=== PATIENT | female | born 1960 | race Caucasian/White ===

== ENCOUNTER 2017-05-02 13:05 | Emergency (ER) | payer SELFPAY ==
[~2017-05-02] VITALS: Ht 180.3 cm; Wt 84.0 kg
[~2017-05-02 13:05] MED LIST: CLON1 PO; PROM6.257 PO
[2017-05-02 13:07] VITALS: BP 194/100; PULSE 83; RESP 16; TEMP 97.9; O2SAT 98
[2017-05-02 13:54] LABS: BASOPHIL # 0.1 TH/MM3 (0-0.2); BASOPHIL % 1.2 % (0.0-2.0); EOSINOPHIL # 0.1 TH/MM3 (0-0.4); EOSINOPHIL % 0.8 % (0.0-4.0); HEMATOCRIT 39.4 % (35.0-46.0); HEMO FLAGS DIFF FINAL; MEAN CELL VOLUME 88.5 FL (80.0-100.0); MEAN CORPUSCULAR HEMOGLOBIN 30.5 PG (27.0-34.0); MEAN CORPUSCULAR HGB CONC 34.4 % (32.0-36.0); MONO % 4.2 % (0.0-8.0); NEUT % 62.8 % (16.0-70.0); PLATELET COUNT 297 TH/MM3 (150-450); RED BLOOD COUNT 4.45 MIL/MM3 (4.00-5.30); RED CELL DISTRIBUTION WIDTH 14.3 % (11.6-17.2); WHITE BLOOD COUNT 9.6 TH/MM3 (4.0-11.0)
--- NOTE | 2017-05-02 14:06 | RADRPT ---
EXAM DATE/TIME: 05/02/2017 13:42 [place] COMPARISON: No previous studies available for comparison. INDICATIONS : Mid-chest pain and tightness. MEDICAL HISTORY : Hypertension. SURGICAL HISTORY : None. ENCOUNTER: Initial ACUITY: 1 day PAIN SCORE: 7/10 LOCATION: Bilateral chest FINDINGS: PA and lateral views of the chest demonstrate the lungs to be symmetrically aerated without evidence of mass, infiltrate or effusion. The cardiomediastinal contours are unremarkable. Osseous structure s are intact. CONCLUSION: No acute disease. Marcos Knowles Jr., MD on May 02, 2017 at 13:57 Board Certified Radiologist. This report was verified electronically.
[2017-05-02 14:12] LABS: ANION GAP 6 MEQ/L (5-15); BICARBONATE 28.6 MEQ/L (21.0-32.0); BLOOD UREA NITROGEN 13 MG/DL (7-18); CHLORIDE 104 MEQ/L (98-107); GLOMERULAR FILTRATION RATE 55 ML/MIN (>89); POTASSIUM 3.4 MEQ/L (3.5-5.1); SODIUM (NA) 139 MEQ/L (136-145)
[2017-05-02 14:19] LABS: CREATINE KINASE 63 U/L (26-192)
--- NOTE | 2017-05-03 11:27 | EKG ---
Date Performed: 05/02/2017 Time Performed: 13:19:22 PTAGE: 57 years EKG: Sinus rhythm NORMAL ECG Compared to prior tracing no significant change PREVIOUS TRACING : 05/03/2015 00.15 DOCTOR: Jorge Marley Interpretating Date/Time 05/03/2017 11:26:08
== END 2017-05-02 16:53 | disposition left against medical advice (07) ==
LOC: NED 13:05
DX: I20.9 Angina pectoris, unspecified (principal); R06.02 Shortness of breath
CPT/HCPCS: 71020; 80048; 82550; 84484; 85025; 93005; 99281

== ENCOUNTER 2018-06-02 15:11 | Observation (INO) ==
[2018-06-02] MEDS ORDERED: Morphine Inj 4 MG/ML Vial IV.PUSH ONE (15:23)
--- NOTE | 2018-06-02 15:27 | ED ---
HPI General Chief Complaint: Chest Pain Stated Complaint: chest pain Time Seen by Provider: 06/02/18 15:19 Source: patient Mode of arrival: ambulatory Limitations: no limitations History of Present Illness HPI narrative: According to patient she does not have a primary care physician currently No known drug allergy Past medical history significant for hypertension, hypercholesterolemia, denies any cardiac or diabetic history Patient comes in complaining of epigastric/substernal chest pressure, has been going on since 9 AM, worsening over the last 45 minutes, associated with nausea but without any diaphoresis vomiting diarrhea MD complaint: Reports chest pain STEMI Alert: No Onset (ago): hour(s) (6) Duration: constant and progressively worsening Onset: during rest Pain location: Reports substernal Severity: severe Severity scale (1-10): 9 Quality: Reports tightness and heaviness Pain radiation: Reports jaw/teeth Relieving factors: nothing Exacerbating factors: nothing Treatments prior to arrival chest pain: Reports none Related Data Allergies Allergy/AdvReac Type Severity Reaction Status Date / Time No Known Allergies Allergy Verified 06/02/18 15:15 Review of Systems ROS: all other systems reviewed are negative [facility] Medical History Medical History Hypertension (Acute) Irregular heart beat (Acute) Surgical History Surgical History History of nasal surgery (Acute) Social History Social History Substance History: No History of Abuse Smoking Status: Never smoker How Often Do You Have a Drink Containing Alcohol: Never Recent Travel in [facility] within the Last 8 Weeks: No Recent Out of Country Travel within the Last 8 Weeks: No Immunization History Tetanus Immunization: Unsure Exam Narrative Exam Narrative: GENERAL: female in moderate distress secondary to chest pain SKIN: Focused skin assessment warm/dry. HEAD: Atraumatic. Normocephalic. EYES: Pupils equal and round. No scleral icterus. No injection or drainage. ENT: No nasal bleeding or discharge. Mucous membranes pink and moist. NECK: Trachea midline. No JVD. CARDIOVASCULAR: Regular rate and rhythm. No murmur appreciated. RESPIRATORY: No accessory muscle use. Clear to auscultation. Breath sounds equal bilaterally. GASTROINTESTINAL: Abdomen soft, non-tender, nondistended. Hepatic and splenic margins not palpable. MUSCULOSKELETAL: No obvious deformities. No clubbing. No cyanosis. No edema. NEUROLOGICAL: Awake and alert. No obvious cranial nerve deficits. Motor grossly within normal limits. Normal speech. PSYCHIATRIC: Appropriate mood and affect; insight and judgment normal. Course Initial Documented Vital Signs Temperature 97.6 F 06/02/18 15:13 Pulse Rate 82 06/02/18 15:13 Respiratory Rate 24 06/02/18 15:13 Blood Pressure 191/102 H 06/02/18 15:13 Pulse Oximetry 100 06/02/18 15:13 Last Documented Vital Signs Temperature 97.6 F 06/02/18 15:13 Pulse Rate 79 06/02/18 15:34 Respiratory Rate 19 06/02/18 15:34 Blood Pressure 155/79 H 06/02/18 15:34 Pulse Oximetry 98 06/02/18 15:34 Critical Care Time Critical Care Time: Yes Total Critical Care Time: 30 Attestation: Aggregate critical care time was 30 minutes. Time to perform other separately billable procedures was not included in the critical care time. My time did not include minutes spent treating any other patients simultaneously or on activities that did not directly contribute to the patient's treatment. The services I provided to this patient were to treat and/or prevent clinically significant deterioration I provided critical care services requiring my management, as noted below: Chart data review, documentation time, medication orders and management, vital sign assessments/reviewing monitor data, ordering and reviewing lab tests, ordering and interpreting/reviewing x-rays and diagnostic studies, care of the patient and discussion of the patient with the admitting physicians. Medical Decision Making MDM Narrative Medical decision making narrative: Coagulation profile is within normal limits CBC does not show any leukocytosis , or left shift, normal platelet count, no anemia First set of cardiac enzymes negative Normal pancreatic functions, first set of cardiac enzymes negative, electrolytes are all within normal limits, mildly elevated creatinine 1.19 with decreased GFR of 46 As of [address] chest rule out PE Medical Screen Exam Complete: Yes Emergency Medical Condition: Yes Medical Records Medical records reviewed: Yes I reviewed the patient's medical records. Lab Data Result diagrams: 06/02/18 15:26 06/02/18 15:26 Lab Results 06/02/18 06/02/18 06/02/18 Range/Units 15:26 15:26 15:26 WBC 11.0 (4.0-11.0) th/mm3 RBC 4.85 (4.00-5.30) mil/mm3 Hgb 14.8 (11.6-15.3) gm/dL Hct 43.6 (35.0-46.0) % MCV 89.9 (80.0-100.0) fL MCH 30.4 (27.0-34.0) pg MCHC 33.9 (32.0-36.0) % RDW 14.4 (11.6-17.2) % Plt Count 321 (150-450) th/mm3 MPV 7.6 (7.0-11.0) fL Neut % (Auto) 52.5 (16.0-70.0) % Lymph % (Auto) 37.4 (9.0-44.0) % Walker % (Auto) 7.2 (0.0-8.0) % Eos % (Auto) 1.7 (0.0-4.0) % Baso % (Auto) 1.2 (0.0-2.0) % Neut # (Auto) 5.8 (1.8-7.7) th/mm3 Lymph # (Auto) 4.1 (1.0-4.8) th/mm3 Walker # (Auto) 0.8 (0.0-0.9) th/mm3 Eos # (Auto) 0.2 (0.0-0.4) th/mm3 Baso # (Auto) 0.1 (0.0-0.2) th/mm3 WBC Differential . Differential Comment Auto diff final PT 10.3 (9.8-11.6) sec INR 1.0 Ratio APTT 28.0 (23.4-31.7) sec Sodium 139 (136-145) meq/L Potassium 3.8 (3.5-5.1) meq/L Chloride 102 (98-107) meq/L Carbon Dioxide 28.4 (21.0-32.0) meq/L Anion Gap 9 (5-15) meq/L BUN 11 (7-18) mg/dL Creatinine 1.19 H (0.50-1.00) mg/dL Estimated GFR 46 L (>89) mL/min Random Glucose 97 (74-106) mg/dL Calcium 9.3 (8.5-10.1) mg/dL Total Bilirubin 0.5 (0.2-1.0) mg/dL AST 56 H (15-37) U/L ALT 46 (10-53) U/L Alkaline Phosphatase 132 H (45-117) U/L Total Creatine Kinase 85 (26-192) U/L Troponin I Less than 0.02 L (0.02-0.05) ng/mL Total Protein 8.8 H (6.4-8.2) g/dL Albumin 3.9 (3.4-5.0) g/dL Lipase 151 (73-393) U/L Imaging Data Radiologist's impression: Chest X-Ray 06/02/18 15:23 CONCLUSION: Negative examination. ECG Data EKG Prior to Arrival: No Attestation: I personally reviewed and interpreted this ECG as follows: Prior ECG tracings: not available for review Interpretation: Normal sinus rhythm, normal intervals 84 bpm, baseline motion artifact noted, however no major evidence of any acute ST elevation WA pattern noted Discharge Plan Discharge Disposition Patient Disposition: 30 Still Patient Discharge Condition Condition: Fair Discharge Details Diagnosis: Chest pain, rule out acute myocardial infarction Physicians Team ED Provider: Bruno Munoz Discharge Instructions Patient Printed Instructions: Chest Pain (ED) Discharge Interventions Interventions: Vital Signs Last Done: 06/02/18 15:15 Status ED Status: Pending Admission
[2018-06-02] MEDS: Metoprolol Inj 5 MG/5 ML Vial IV.PUSH SCH ×2 (15:29→17:01)
[2018-06-02 15:38] LABS: Baso # (Auto) 0.1 th/mm3 (0.0-0.2); Baso % (Auto) 1.2 % (0.0-2.0); Eos # (Auto) 0.2 th/mm3 (0.0-0.4); Eos % (Auto) 1.7 % (0.0-4.0); Hematocrit 43.6 % (35.0-46.0); Hemoglobin 14.8 gm/dL (11.6-15.3); Lymph # (Auto) 4.1 th/mm3 (1.0-4.8); Lymph % (Auto) 37.4 % (9.0-44.0); Mean Corpuscular HGB Conc 33.9 % (32.0-36.0); Mean Corpuscular Hemoglobin 30.4 pg (27.0-34.0); Mean Corpuscular Volume 89.9 fL (80.0-100.0); Mean Platelet Volume 7.6 fL (7.0-11.0); Mono # (Auto) 0.8 th/mm3 (0.0-0.9); Mono % (Auto) 7.2 % (0.0-8.0); Neut # (Auto) 5.8 th/mm3 (1.8-7.7); Neut % (Auto) 52.5 % (16.0-70.0); Platelet Count 321 th/mm3 (150-450); Red Blood Count 4.85 mil/mm3 (4.00-5.30); Red Cell Distribution Width 14.4 % (11.6-17.2)
--- NOTE | 2018-06-02 15:49 | XR ---
EXAM DATE: 06/02/2018 3:44 PM EST AGE/SEX: 58 years / Female INDICATIONS: Bilateral chest pain. CLINICAL DATA: This is the patient's initial encounter. Patient reports that signs and symptoms have been present for 1 day and indicates a pain score of 4/10. MEDICAL/SURGICAL HISTORY: Hypertension. None. COMPARISON: [facility] [place], CHEST PA & LAT, 05/02/2017. . FINDINGS: A single AP view of the chest demonstrates the lungs to be symmetrically aerated without evidence of mass, infiltrate or effusion. The cardiomediastinal contours are unremarkable. Osseous structures a re intact. CONCLUSION: Negative examination. Electronically signed by: Mio Randolph MD 06/02/2018 3:48 PM EST
[2018-06-02 15:55] LABS: Alanine Aminotransferase 46 U/L (10-53); Albumin 3.9 g/dL (3.4-5.0); Anion Gap 9 meq/L (5-15); Aspartate Aminotransferase 56 U/L (15-37); Blood Urea Nitrogen 11 mg/dL (7-18); Calcium 9.3 mg/dL (8.5-10.1); Carbon Dioxide 28.4 meq/L (21.0-32.0); Chloride 102 meq/L (98-107); Glomerular Filtration Rate 46 mL/min (>89); Glucose,Random 97 mg/dL (74-106); Lipase 151 U/L (73-393); Potassium 3.8 meq/L (3.5-5.1); Sodium 139 meq/L (136-145)
[2018-06-02 15:58] LABS: Prothrombin Time 10.3 sec (9.8-11.6)
[2018-06-02 15:59] LABS: Alkaline Phosphatase 132 U/L (45-117); Creatine Kinase 85 U/L (26-192); Total Protein 8.8 g/dL (6.4-8.2)
[2018-06-02] MEDS ORDERED: Acetaminophen 500 MG Tablet PO PRN (16:43)
--- NOTE | 2018-06-02 17:10 | P.HPCA ---
History of Present Illness Primary Care Physician: No Primary Care Physician Chief Complaint: Chest pain History of Present Illness: 58-year-old female with known hypertension and hyperlipidemia currently not on medication presents emergency room for further evaluation of nonexertional chest pain. Onset 9 AM. Location substernal with radiation to left jaw. Characterized as a dull pressure. Associated symptoms included mild shortness of breath and diaphoresis. No nausea or vomiting. No precipitating or relieving factors. Reports chest pressure become intense, therefore came to ER for further evaluation. Intense chest pain lasted 1 hour. Discomfort never fully resolved. Currently reports pressure as "mild." Endorses similar pain intermittently in the last few months. Reports with exertion becoming dyspneic, followed by substernal chest pressure with associated diaphoreses. Resolves with rest. Does not follow with a PCP. Known hypertension and hyperlipidemia. No known coronary artery disease or diabetes. No recent illness, fever, injury , or increased situational stress. Past cardiac testing None Social history Known hypertension and hyperlipidemia, unfortunately, medication. No known diabetes or coronary artery disease. Lifelong non-smoker. Occasional social drinker. No recreational drug use. . Family lives locally. [place] twins live with her. Family history Noncontributory for early onset vascular disease - Diagnosis (1) Chest pain, rule out acute myocardial infarction (2) Hypertension Review of Systems All other systems reviewed negative except as stated in [facility] - History History Provided By: Patient - Medical History Medical History: Medical History (Last Updated 06/02/18 @ 17:18 by DUNIA Soares) Hyperlipidemia Hypertension Irregular heart beat - Surgical History Surgical History: Surgical History (Last Reviewed 06/02/18 @ 17:18 by DUNIA Soares) History of nasal surgery - Social History I have reviewed the patient's Social History: Yes - Tobacco History Second Hand Smoke Exposure: No Tobacco Use In Past 30 Days: No Smoking Status: Never smoker - Alcohol History How Often Do You Have a Drink Containing Alcohol: Never - Substance Use History Substance History: No History of Abuse - Travel History History of Recent Travel: No Recent Travel in the [place] Within the Last 8 Weeks: No Recent Travel Out of the Country Within the Last 8 Weeks: No - Immunization History Tetanus Immunization: Unsure Medications and Allergies Active Medications: Active Medications Acetaminophen (Tylenol) 500 mg PO Q4H PRN PRN Reason: HEADACHE Nitroglycerin (Nitrostat Sl) 0.4 mg SL Q5M PRN PRN Reason: CHEST PAIN Ondansetron HCl (Zofran Inj) 4 mg IV.PUSH Q6H PRN PRN Reason: NAUSEA Sodium Chloride (Ns Flush) 2 ml IV.FLUSH UNSCH PRN PRN Reason: FLUSH AFTER USING IV ACCESS Last Admin: 06/02/18 15:30 Dose: 2 ml Sodium Chloride (Ns Flush) 2 ml IV.FLUSH BID JARET Allergies Allergy/AdvReac Type Severity Reaction Status Date / Time No Known Allergies Allergy Verified 06/02/18 15:15 Exam Vital signs: Vital Signs 06/02/18 15:13 06/02/18 15:15 06/02/18 15:34 Temperature 97.6 F Pulse Rate 82 84 79 Respiratory Rate 24 22 19 Blood Pressure 191/102 H 196/104 H 155/79 H Pulse Oximetry 100 97 98 06/02/18 16:00 06/02/18 17:04 Temperature Pulse Rate 73 Respiratory Rate 18 Blood Pressure 142/78 H Pulse Oximetry 95 95 Intake & Output 06/01/18 06/02/18 06/02/18 18:59 06:59 18:59 Weight 99.79 kg Narrative: GENERAL: Alert WN, WD, NAD, pleasant, overweight, female HEAD: NC, AT EYES: Sclera clear, conjunctiva without injection ENT: Mucous membranes pink and moist NECK: Supple, no masses, trachea midline CV: RRR, without murmur, rub, gallop, no JVD, S1-S2 no S3-S4. No carotid bruits. Chest wall tender with palpation, not reproducible in characteristic presenting chest pain RESP: Clear lungs throughout bilateral, no crackles, wheeze, rhonchi, symmetrical chest rise, nonlabored, able to speak in full sentences ABD: Soft, NT, ND, no masses, positive bowel tones, obese EXT: Pulses +2x4, no dependent edema MS: Normal tone x4 extremities, nontender, no obvious deformities, full range of motion NEURO: CN II through CN XII grossly intact, motor strength 5/5 PSYCH: A+O x3, pleasant affect, appropriate speech, mood, insight and judgment SKIN: Normal turgor, normal texture, no lesions, no rashes, brisk cap refill, even hair distribution Results 06/02/18 15:26 06/02/18 15:26 Cardiac Enzymes 06/02/18 06/02/18 Range/Units 15:26 15:26 AST 56 H (15-37) U/L Troponin I Less than 0.02 L (0.02-0.05) ng/mL B-Natriuretic Peptide 49 (0-100) pg/mL Coagulation 06/02/18 06/02/18 Range/Units 15:26 15:26 PT 10.3 (9.8-11.6) sec APTT 28.0 (23.4-31.7) sec B-Natriuretic Peptide 49 (0-100) pg/mL CBC 06/02/18 Range/Units 15:26 WBC 11.0 (4.0-11.0) th/mm3 RBC 4.85 (4.00-5.30) mil/mm3 Hgb 14.8 (11.6-15.3) gm/dL Hct 43.6 (35.0-46.0) % Plt Count 321 (150-450) th/mm3 Neut # (Auto) 5.8 (1.8-7.7) th/mm3 Lymph # (Auto) 4.1 (1.0-4.8) th/mm3 Ritchie # (Auto) 0.8 (0.0-0.9) th/mm3 Eos # (Auto) 0.2 (0.0-0.4) th/mm3 Baso # (Auto) 0.1 (0.0-0.2) th/mm3 Comprehensive Metabolic Panel 06/02/18 Range/Units 15:26 Sodium 139 (136-145) meq/L Potassium 3.8 (3.5-5.1) meq/L Chloride 102 (98-107) meq/L Carbon Dioxide 28.4 (21.0-32.0) meq/L BUN 11 (7-18) mg/dL Creatinine 1.19 H (0.50-1.00) mg/dL Calcium 9.3 (8.5-10.1) mg/dL AST 56 H (15-37) U/L ALT 46 (10-53) U/L Alkaline Phosphatase 132 H (45-117) U/L Total Protein 8.8 H (6.4-8.2) g/dL Albumin 3.9 (3.4-5.0) g/dL Intake and Output 11/18/18 11/18/18 11/18/18 06:59 14:59 22:59 Other: Weight 99.79 kg Patient Weight 06/03/18 06:59 Weight 99.79 kg - Imaging and Cardiology Imaging: Impressions Chest X-Ray 06/02/18 15:23 CONCLUSION: Negative examination. EKG interpretations - EKG EKG results cardiology: sinus rhythm, normal axis, normal QRS, normal ST/T Caprini VTE Risk Assessment Caprini VTE Risk Assessment: No/Low Risk (score <= 1) Caprini Risk Assessment Model: Point Value = 1 Point Value = 2 Point Value = 3 Point Value = 5 Age 41-60 Minor surgery BMI > 25 kg/m2 Swollen legs Varicose veins or History of unexplained or recurrent spontaneous Oral contraceptives or hormone replacement Sepsis (< 1 month) Serious lung disease, including pneumonia (< 1 month) Abnormal pulmonary function Acute myocardial infarction Congestive heart failure (< 1 month) History of inflammatory bowel disease Medical patient at bed rest Age 61-74 Arthroscopic surgery Major open surgery (> 45 min) Laparoscopic surgery (> 45 min) Malignancy Confined to bed (> 72 hours) Immobilizing plaster cast Central venous access Age >= 75 History of VTE Family history of VTE Factor V Leiden Prothrombin [id number] Lupus anticoagulant Anticardiolipin antibodies Elevated serum homocysteine Heparin-induced thrombocytopenia Other congenital or acquired thrombophilia Stroke (< 1 month) Elective arthroplasty Hip, pelvis, or leg fracture Acute spinal cord injury (< 1 month) Prophylaxis Regimen: Total Risk Factor Score Risk Level Prophylaxis Regimen 0-1 Low Early ambulation 2 Moderate Order ONE of the following: *Sequential Compression Device (SCD) *Heparin 5000 units SQ BID 3-4 Higher Order ONE of the following medications: *Heparin 5000 units SQ TID *Enoxaparin/Lovenox 40 mg SQ daily (WT < 150 kg, CrCl > 30 mL/min) *Enoxaparin/Lovenox 30 mg SQ daily (WT < 150 kg, CrCl > 10-29 mL/min) *Enoxaparin/Lovenox 30 mg SQ BID (WT < 150 kg, CrCl > 30 mL/min) AND/OR *Sequential Compression Device (SCD) 5 or more Highest Order ONE of the following medications: *Heparin 5000 units SQ TID (Preferred with Epidurals) *Enoxaparin/Lovenox 40 mg SQ daily (WT < 150 kg, CrCl > 30 mL/min) *Enoxaparin/Lovenox 30 mg SQ daily (WT < 150 kg, CrCl > 10-29 mL/min) *Enoxaparin/Lovenox 30 mg SQ BID (WT < 150 kg, CrCl > 30 mL/min) AND *Sequential Compression Device (SCD) Assessment and Plan - Assessment (1) Chest pain, rule out acute myocardial infarction Code(s): R07.9 - Chest pain, unspecified Status: Acute Plan: Admitted chest pain center. Continue to rule out ACS with 3 sets of EKGs and cardiac enzymes. Seen and evaluated by Dr. Everett Ordonez. Presenting symptoms concerning for angina. Monitor on telemetry overnight. Begin nitroglycerin 0.5 inch every 6 hours and metoprolol titrate 12.5 mg twice daily. If ACS ruled out overnight, plan to proceed with Lexiscan in a.m. Patient verbalized understanding and agreeable to plan of care. (2) Hypertension Code(s): I10 - Essential (primary) hypertension Status: Acute Plan: Continue to monitor. Strongly encouraged establishing with a primary care provider. (2) Hypertension Qualifiers: Hypertension type: unspecified Qualified Code(s): I10 - Essential (primary) hypertension
--- NOTE | 2018-06-02 17:41 | CT ---
EXAM DATE: 06/02/2018 5:33 PM EST AGE/SEX: 58 years / Female INDICATIONS: Chest pain and shortness of breath; rule out pulmonary embolus. CLINICAL DATA: This is the patient's initial encounter. Patient reports that signs and symptoms have been present for 1 day and indicates a pain score of 6/10. MEDICAL/SURGICAL HISTORY: Hypertension. . nasal surgery RADIATION DOSE: 23.15 CTDI (mGy) COMPARISON: No prior exams available for comparison. TECHNIQUE: Volumetric scanning was performed using a multi-row detector CT scanner during bolus infu rashi of 70 ml Omnipaque 350 (iohexol) nonionic water-soluble contrast as a single exam dose. The jacki a was post processed with a variety of visualization algorithms including full volume maximum intensi ty projection and sliding thin slab reformation. Using automated exposure control and adjustment of t he mA and/or kV according to patient size, radiation dose was kept as low as reasonably achievable to obtain optimal diagnostic quality images. DICOM format image data is available electronically for r eview and comparison. FINDINGS: Pulmonary Arteries: No filling defects are seen in the pulmonary arteries out to the subsegmental ve ssels. The left and right pulmonary arteries are normal in diameter. Lung: Minimal scattered atelectatic changes are noted. No pneumonia or pulmonary edema. No pulmonary nodule or mass. Effusion: None. Mediastinum: No evidence of mediastinal or hilar adenopathy. There is mild aneurysmal dilatation of the ascending thoracic aorta which measures 4.5 cm in greatest dimension. The heart is mildly promine nt. Other: The axilla is unremarkable. There is a 2.1 cm low-density lesion within the left hepatic lobe which is indeterminate. Mild hepatomegaly is noted. CONCLUSION: 1. No evidence of pulmonary embolism. 2. Minimal scattered atelectatic changes bilaterally. 3. Mild aneurysmal dilatation of the ascending thoracic aorta which measures 4.5 cm in greatest dime nsion. 4. Cardiomegaly. 5. 2.1 cm low-density lesion within the left hepatic lobe which is indeterminate. 6. Mild hepatomegaly. Electronically signed by: Mio Randolph MD 06/02/2018 5:39 PM EST
[2018-06-02 18:38] LABS: Creatine Kinase 81 U/L (26-192)
[2018-06-02] MEDS: Metoprolol Tartrate 25 MG Tablet PO SCH (20:00)
[2018-06-02 21:42] LABS: Creatine Kinase 59 U/L (26-192)
[2018-06-02 22:53] LABS: Amorphous Sediment,Urine Moderate /hpf; Bacteria,Urine Rare /hpf; Bilirubin,Urine Negative (Negative); Clarity,Urine Cloudy (Clear); Color,Urine Yellow (Yellw/Straw); Glucose,Urine (UA) Negative (Negative); Leukocyte Esterase,Urine Negative (Negative); Nitrite,Urine Negative (Negative); Specific Gravity,Urine 1.058 (1.002-1.035); Squamous Epithelial Cell,Urine 1 /hpf (0-5)
[2018-06-02 22:55] LABS: Amphetamine Screen,Urine Neg (Neg); Barbiturate Screen,Urine Neg (Neg); Cannabinoid Screen,Urine Neg (Neg); Cocaine Screen,Urine Neg (Neg)
[2018-06-02 22:56] LABS: Opiate Screen,Urine Pos (Neg)
[2018-06-03 04:09] VITALS: TEMP 97.5
[2018-06-03 06:54] LABS: Chol/HDL Ratio 4.7 Ratio; HDL Cholesterol 37.8 mg/dL (40.0-60.0)
--- NOTE | 2018-06-03 08:01 | ECG ---
Date Performed: 06/02/2018 Time Performed: 15:21:56 PTAGE: 58 years EKG: Sinus rhythm NORMAL ECG Since PREVIOUS TRACING , no significant change noted PREVIOUS TRACIN05/02/2017 13.19 DOCTOR: Tomasa Watkins Interpretating Date/Time 06/03/2018 08:00:54
--- NOTE | 2018-06-03 08:01 | ECG ---
Date Performed: 06/02/2018 Time Performed: 18:14:33 PTAGE: 58 years EKG: Sinus rhythm NORMAL ECG Since PREVIOUS TRACING , no significant change noted PREVIOUS TRACIN06/02/2018 15.21 DOCTOR: Tomasa Watkins Interpretating Date/Time 06/03/2018 08:01:20
[2018-06-03 08:02] VITALS: BP 152/95; RESP 16
--- NOTE | 2018-06-03 08:02 | ECG ---
Date Performed: 06/02/2018 Time Performed: 21:33:55 PTAGE: 58 years EKG: Sinus rhythm NORMAL ECG Since PREVIOUS TRACING , no significant change noted DOCTOR: Tomasa Watkins Interpretating Date/Time 06/03/2018 08:01:33
[2018-06-03] MEDS: Metoprolol Tartrate 25 MG Tablet PO SCH (08:18)
[2018-06-03 08:34] VITALS: O2SAT 98
[2018-06-03] MEDS ORDERED: Regadenoson Inj 0.4 MG/5 ML Syringe IV.PUSH ONE (09:06)
--- NOTE | 2018-06-03 10:18 | NM ---
EXAM DATE: 06/03/2018 10:08 AM EST AGE/SEX: 58 years / Female INDICATIONS:Angina. . Substernal chest pain. CLINICAL DATA: This is the patient's initial encounter. Patient reports that signs and symptoms have been present for 1 day and indicates a pain score of 1/10. MEDICAL/SURGICAL HISTORY: Hypercholesterolemia. Hypertension. None. COMPARISON: No prior exams available for comparison. DOSE: 8.1 mCi Tc 99m Myoview at rest 26.9 mCi [id number] at stress 0.4 mg Lexiscan STRESS SYMPTOMS: Dyspnea and chest pain. EJECTION FRACTION: 68 % TECHNIQUE: The patient underwent pharmacologic stress with infusion of prescribed dose. Continuous ECG tracing was monitored during stress. Gated SPECT imaging was performed after stress and conventi onal SPECT imaging was performed at rest. The examination was performed on a SPECT/CT scanner, both attenuation and non-corrected datasets were reviewed. FINDINGS: Distribution: The maximum perfused segment at stress is in the inferior wall wall. Perfusion Study: The pattern of perfusion at stress is within normal limits. Gated Study: There are intact wall motion and wall thickening without hypokinetic or dyskinetic segm ents. The ejection fraction is calculated at 68%. RISK CATEGORY: Low (<1% Annual Motality Rate) CONCLUSION: 1. No significant fixed or reversible perfusion abnormalities noted. 2. Normal wall motion and ejection fraction. Electronically signed by: Aldo Dewey MD 06/03/2018 10:17 AM EST
[2018-06-03 11:37] VITALS: PULSE 64
--- NOTE | 2018-06-03 16:55 | TR ---
Date Performed: 06/03/2018 Time Performed: 09:16:36 DOCTOR: Tomasa Watkins DRUG LIST: CLINICAL HISTORY: CHEST PAIN REASON FOR TEST: CHEST PAIN REASON FOR ENDING: OBSERVATION: CONCLUSION: Lexiscan stress test was performed under standard four minute protocol. Radionuclid e was injected one minute prior to ending the test. No electrocardiographic abormalities were present to suggest ischemia. Nuclear imaging and interpretation are pending. COMMENTS: Lexiscan stress test was performed under standard four minute protocol. Radionuclide was injected one minute prior to ending the test. No electrocardiographic abormalities were present t o suggest ischemia. Nuclear imaging and interpretation are pending.
== END 2018-06-03 11:59 | disposition home or self-care (01) ==
LOC: NEDA 15:11 → NEPC 15:11 → NEDA 17:46 → NEPHCDU 17:51
DX: K76.9 Liver disease, unspecified; E78.5 Hyperlipidemia, unspecified; I11.9 Hypertensive heart disease without heart failure; R16.0 Hepatomegaly, not elsewhere classified; I71.2 Thoracic aortic aneurysm, without rupture; R07.89 Other chest pain